=== PATIENT | male | born 1950 | race Caucasian/White ===

== ENCOUNTER → 2018-03-25 07:57 | Outpatient (CLI) | payer OTHER, SELFPAY ==
[2018-03-25 09:03] LABS: Hemoglobin A1C% w Est Avg Glu 5.4 % (4.0-6.0)
[2018-03-25 09:26] LABS: BUN Creatinine Ratio 27.1 (6-22); Blood Urea Nitrogen 19 mg/dL (9-20); Calcium 9.2 mg/dL (8.4-10.2); Carbon Dioxide 28 mmol/L (22-32); Chloride 102 mmol/L (98-107); Cholesterol 184 mg/dL (140-199); Estimated Glomerular Filt Rate > 60.0 mL/min (>60); Glucose 91 mg/dL (80-110); HDL Cholesterol 51 mg/dL (40-60); HEMOLYSIS < 15 (0-50); LDL Cholesterol Calculated 119 mg/dL (<100); Potassium 4.8 mmol/L (3.4-5.1); Sodium 141 mmol/L (137-145); Triglycerides 71 mg/dL (35-150)
[2018-03-25 09:56] LABS: TSH w/ Reflex to FT4 2.38 uIU/mL (0.47-4.68)
[2018-03-25 09:57] LABS: Prostate Specific Antigen 0.945 ng/mL (0.10-4.00)
[2018-03-25 10:47] LABS: Microalbumi Creatinin Ratio Ur 2.7 ug/mg CR (<30); Microalbumin Urine Random 0.8 mg/dL (0-1.6)
== END ==
PROVIDERS: Family Provider Family Medicine; PCP Family Medicine; Visit Provider Family Medicine
DX: E11.9 Type 2 diabetes mellitus without complications (principal); I10 Essential (primary) hypertension; E03.9 Hypothyroidism, unspecified
CPT/HCPCS: 36415; 80048; 80061; 82043; 82570; 83036; 84153; 84443

== ENCOUNTER 2018-07-30 07:42 | Day surgery (SDC) | payer OTHER, SELFPAY ==
--- NOTE | 2018-07-30 | PATH_ITS ---
[facility] Accession Number: [id number] . 01 Material submitted: . ASCENDING COLON BIOPSIES . 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 [facility]/08/01/2018 . 02 Electronically signed: . Li Cruz MD, Pathologist NPI- [id number] . 01 Gross description: . Received one formalin-filled container labeled with the patient's name and labeled ascending colon are four 0.1 to 0.3 cm portions of tissue. Entirely submitted in one cassette. ([facility] [place]:[id number]) /[facility] . 02 Pathologist provided ICD-10: D12.2 . 02 CPT . 060051 Performed at: 01 [facility] [address] [id number] MD Braden Simpson MD Phone: [phone] Performed at: 02 [facility] [address] [place], [place] [id number] MD Li Cruz MD Phone: [phone]
[2018-07-30 08:21] VITALS: BP 125/77; PULSE 55; RESP 15; TEMP 36.4; O2SAT 97; BMI 26.1
[2018-07-30] MEDS: SODIUM CHLORIDE 0.9% 1,000 ML 200 ML IV (08:55)
--- NOTE | 2018-07-30 09:06 | SUR.OPER ---
pt had episode of lightheadedness, paleness, and diaphoresis following insert of IV. BP had drop to 99/65 from 127/77 and heart rate decreased from 55 to 43 . pt layed flat and infused NS at wide open for 500 cc bolus with pt returning to normal pre op assessment status within 10 minutes. remained alert and oriented throughout entire episode
[2018-07-30] MEDS: fentaNYL 250 MCG/5 ML INJ IV (09:10)
[2018-07-30] MEDS: MIDAZOLAM 5 MG/5 ML VIAL IV (09:11)
--- NOTE | 2018-07-30 09:28 | PM.HP.1 ---
History of Present Illness Date Patient Seen: 07/30/18 Time Patient Seen: 09:28 Chief complaint: colonoscopy [id number] Narrative: Patient is a gentleman whose last colonoscopy was 5 years ago. He has a personal history of polyps. He is here for colonoscopy. No family history of colon cancer. Patient History Medical History Diabetes mellitus type 2 in nonobese (Chronic) Actinic keratosis (Chronic ~2007) Atrial fibrillation (Chronic ~1977) Hearing loss (Chronic ~1957) Hypothyroidism (Chronic ~2009) Rheumatic fever (Chronic ~1959) Sleep apnea (Chronic ~2009) Tinnitus (Chronic) Anesthesia (Resolved) Chicken pox (Resolved ~1957) Fractures (Resolved ~1960) Measles (Resolved ~1959) Mumps (Resolved ~1959) Surgical History Inguinal hernia (Resolved) Status post colonoscopy Status post myringotomy with insertion of tube Status post tonsillectomy and adenoidectomy Family & Social History Family History: Reviewed 07/30/18 by Cl Andrew MD Social History: household members spouse Tobacco & Substance use: Smoking Status Never smoker Meds Home Medications Medication Instructions Recorded Confirmed Type ASPIRIN (Aspirin EC) 81 mg PO QDAY #0 01/30/12 03/28/18 History [FLAX SEED OIL] 14 mg PO QDAY #0 01/30/12 03/28/18 History docusate sodium 200 mg PO QDAY #0 01/30/12 07/30/18 History Glucose: Home Monitoring Kit kit QDAY #1 11/21/16 03/28/18 Rx Lancets strip TID #100 07/09/17 03/28/18 Rx Test Strips - Freestyle str TID #270 07/13/17 03/28/18 Rx Glucose: Test Strips str TID #270 08/31/17 03/28/18 Rx Lancets box #100 12/13/17 03/28/18 Rx levothyroxine 50 mcg tablet 50 mcg PO QDAY #90 tab 03/28/18 07/30/18 Rx lisinopril 20 mg tablet 20 mg PO QDAY #90 tab 03/28/18 07/30/18 Rx metformin 1,000 mg tablet 1,000 mg PO BIDCC #180 tab 03/28/18 07/30/18 Rx atenolol 25 mg tablet 25 mg PO Q24H #90 tab 04/08/18 07/30/18 Rx Allergies Allergy/AdvReac Type Severity Reaction Status Date / Time diltiazem [DILTIAZEM] Allergy Mild Verified 07/30/18 08:32 Sulfa (Sulfonamide Allergy Mild Verified 07/30/18 08:32 Antibiotics) [SULFA (SULFONAMIDE ANTIBIOTICS)] duyen tree Allergy Mild Uncoded 03/28/18 08:36 cantalope Allergy Mild Uncoded 03/28/18 08:36 ragweed Allergy Mild Uncoded 03/28/18 08:36 Review of Systems Review of Systems No cough cold or asthma. He has a slow heart rate. Has a history of atrial fibrillation. Is not anticoagulated. No seizures blackouts Exam Vital Signs (past 8 hours): - 07/30/18 08:21 Temperature 97.6 F Pulse Rate 55 L Respiratory Rate 15 Blood Pressure 125/77 Pulse Oximetry 97 Oxygen Delivery Method Room Air Narrative Exam Narrative: Lungs are clear to auscultation no rales or rhonchi . heart very slow but regular rate and rhythm without murmur gallop. Abdomen is soft nontender without mass. Assessment & Plan Plan: Assessment/Plan Narrative: Will proceed to colonoscopy. I have discussed the procedure and the rationale with the patient including risks of bleeding, perforation which would necessitate a major operation, failure to find remove all lesions and the potential to tattoo. They appeared to understand and wished to proceed.
--- NOTE | 2018-07-30 09:32 | PM.PREOP ---
Pre-operative Note Interval Note Pre-op Check: Yes History & Physical exam performed today by Physician Changes: No ASA Class (for procedural sedation): III
[2018-07-30 10:15] VITALS: BP 86/55; PULSE 45; RESP 16; TEMP 36; O2SAT 96
[2018-07-30 10:20] VITALS: BP 86/53; PULSE 46; RESP 14; TEMP 35.8; O2SAT 95
--- NOTE | 2018-07-30 10:22 | PM.OP.ENDO ---
Operative Date/Time/Diagnoses Date of procedure: 07/30/18 Time of procedure: 10:22 Pre-op diagnosis: Screening examination. History of polyps. Last exam 5 years ago. Post-op diagnosis: same (Polyps in the ascending colon.) Procedure & Clinicians Study performed: Colonoscopy with cold biopsy Same procedure as scheduled: Yes Indications: Screening Surgeon: Cl Andrew Procedure Notes SCOAP/Timeout: Performed Procedure in detail: The patient was placed in the left lateral decubitus position and underwent IV sedation directed by the surgeon consisting of fentanyl and Versed. Digital exam was unremarkable. No prostate masses noted. The scope was inserted and advanced through the rectum into the sigmoid, descending, transverse, and ascending colon. A stiffener was applied along with pressure in order to reach the cecum. The cecum was reached identified by the ileocecal valve and the appendiceal opening. The scope was gradually brought out. Polyps were found in the ascending colon. These were small and near 1 another and placed in the same container. The scope ultimately was retroflexed in the rectum. The appearance was remarkable for small internal hemorrhoids without ulceration. The scope was removed and the patient tolerated the procedure well Scope withdrawal time: 12.5 min Sedation minutes: 29 Findings: diverticulosis (Principally rights sided occasional diverticula), internal hemorrhoids (Small) and polyp (Ascending colon) Specimen(s): other (Polyps) Complications: none Recommendations: Colonscopy in 5 years Follow up: as needed Disposition: PACU
[2018-07-30 10:25] VITALS: BP 96/58; PULSE 54; RESP 20; TEMP 36.2; O2SAT 95
[2018-07-30 10:30] VITALS: BP 94/63; PULSE 50; RESP 16; TEMP 36.1; O2SAT 94
[2018-07-30 10:45] VITALS: BP 101/60; PULSE 48; RESP 16; TEMP 36.6; O2SAT 99
--- NOTE | 2018-07-30 11:37 | SUR.PHASEII ---
brought in, discussed heart rate and atenolol. both voiced an understanding.pt left when ready and left in stable condition.
== END 2018-07-30 11:00 ==
PROVIDERS: PCP Family Medicine; Visit Provider Specialist
PROC: 0DJD8ZZ Inspection of Lower Intestinal Tract, Via Natural or Artificial Opening Endoscopic (ICD-10-PCS; CPT 45378; principal; 2018-07-30 08:45)
DX: Z86.010 Personal history of colon polyps (principal); D12.2 Benign neoplasm of ascending colon; K57.30 Diverticulosis of large intestine without perforation or abscess without bleeding; K64.8 Other hemorrhoids; E11.9 Type 2 diabetes mellitus without complications; I48.91 Unspecified atrial fibrillation; E03.9 Hypothyroidism, unspecified; M06.9 Rheumatoid arthritis, unspecified; G47.33 Obstructive sleep apnea (adult) (pediatric)
CPT/HCPCS: 45380; 99152; 99153; J2250; J3010

== ENCOUNTER → 2019-03-27 08:50 | Outpatient (CLI) | payer OTHER, SELFPAY ==
[2019-03-27 09:19] LABS: Add Manual Diff / Slide Review NO; Basophils Absolute Auto 0 /uL (0-100); Basophils Percent Auto 0.4 % (0-2); Eosinophils Absolute Auto 200 /uL (0-450); Eosinophils Percent Auto 2.9 % (2-4); Hematocrit 40.5 % (41-53); Hemoglobin 13.6 g/dL (13.5-17.5); Lymphocytes Absolute Auto 1900 /uL (1100-4500); Lymphocytes Percent Auto 31.8 % (25-40); Mean Corpuscular HGB Conc 33.7 % (30-36); Mean Corpuscular Hemoglobin 31.2 PG (26-34); Mean Corpuscular Volume 92.7 fL (80-100); Monocytes Absolute Auto 500 /uL (0-900); Neutrophils Absolute Auto 3500 /uL (1500-7000); Neutrophils Percent Auto 56.9 % (50-75); Platelet Count 245 X10^3/uL (150-400); Red Blood Cell Count 4.37 X10^6/uL (4.5-5.9); Red Cell Distribution Width 13.6 % (11.6-14.8); White Blood Cell Count 6.1 X10^3/uL (4.5-11.0)
[2019-03-27 09:26] LABS: Hemoglobin A1C% w Est Avg Glu 5.4 % (4.0-6.0)
[2019-03-27 09:52] LABS: Alanine Aminotransferase 10 IU/L (21-72); Albumin 4.2 g/dL (3.5-5.0); Albumin Globulin Ratio 1.5 (1.0-2.8); Alkaline Phosphatase 56 U/L (38-126); Aspartate Aminotransferase 17 IU/L (17-59); BUN Creatinine Ratio 22.9 (6-22); Bilirubin Total 0.5 mg/dL (0.2-1.3); Blood Urea Nitrogen 16 mg/dL (9-20); Calcium 9.3 mg/dL (8.4-10.2); Carbon Dioxide 31 mmol/L (22-32); Chloride 103 mmol/L (98-107); Cholesterol 194 mg/dL (140-199); Estimated Glomerular Filt Rate > 60.0 mL/min (>60); Globulin 2.8 g/dL (1.7-4.1); Glucose 97 mg/dL (80-110); HDL Cholesterol 43 mg/dL (40-60); HEMOLYSIS < 15 (0-50); LDL Cholesterol Calculated 128 mg/dL (<100); Potassium 4.9 mmol/L (3.4-5.1); Sodium 140 mmol/L (137-145); Triglycerides 114 mg/dL (35-150)
[2019-03-27 10:21] LABS: Prostate Specific Antigen Scrn 1.19 ng/mL (0.1-4.0)
[2019-03-27 10:23] LABS: Thyroid Stimulating Hormone 1.74 uIU/mL (0.47-4.68)
== END ==
PROVIDERS: PCP Family Medicine; Visit Provider Family Medicine
DX: E03.9 Hypothyroidism, unspecified (principal); E11.9 Type 2 diabetes mellitus without complications; E78.5 Hyperlipidemia, unspecified; Z12.5 Encounter for screening for malignant neoplasm of prostate; I10 Essential (primary) hypertension
CPT/HCPCS: 36415; 80053; 80061; 83036; 84443; 85025; G0103

== ENCOUNTER → 2020-05-03 08:43 | Outpatient (CLI) | payer MEDICARE, SELFPAY ==
[2020-05-03 09:21] LABS: Add Manual Diff / Slide Review NO; Basophils Absolute Auto 0 /uL (0-100); Basophils Percent Auto 0.3 % (0-2); Eosinophils Absolute Auto 200 /uL (0-450); Eosinophils Percent Auto 4.1 % (2-4); Hemoglobin 13.5 g/dL (13.5-17.5); Lymphocytes Absolute Auto 1800 /uL (1100-4500); Lymphocytes Percent Auto 29.9 % (25-40); Mean Corpuscular HGB Conc 32.8 % (30-36); Mean Corpuscular Hemoglobin 30.9 PG (26-34); Mean Corpuscular Volume 94.3 fL (80-100); Monocytes Absolute Auto 500 /uL (0-900); Monocytes Percent Auto 8.1 % (3-14); Neutrophils Absolute Auto 3400 /uL (1500-7000); Neutrophils Percent Auto 57.6 % (50-75); Platelet Count 247 X10^3/uL (150-400); Red Blood Cell Count 4.35 X10^6/uL (4.5-5.9); Red Cell Distribution Width 13.3 % (11.6-14.8); White Blood Cell Count 5.9 X10^3/uL (4.5-11.0)
[2020-05-03 09:41] LABS: Hemoglobin A1C% w Est Avg Glu 5.8 % (4.0-6.0)
[2020-05-03 09:46] LABS: Alanine Aminotransferase 15 IU/L (<50); Albumin 4.3 g/dL (3.5-5.0); Albumin Globulin Ratio 1.5 (1.0-2.8); Alkaline Phosphatase 64 U/L (38-126); Aspartate Aminotransferase 24 IU/L (17-59); BUN Creatinine Ratio 19.5 (6-22); Bilirubin Total 0.5 mg/dL (0.2-1.3); Blood Urea Nitrogen 16 mg/dL (9-20); Carbon Dioxide 31 mmol/L (22-32); Chloride 102 mmol/L (98-107); Cholesterol 205 mg/dL (140-199); Estimated Glomerular Filt Rate > 60.0 mL/min (>60); Globulin 2.9 g/dL (1.7-4.1); Glucose 97 mg/dL (80-110); HDL Cholesterol 43 mg/dL (40-60); HEMOLYSIS < 15 (0-50); LDL Cholesterol Calculated 129 mg/dL (<100); Potassium 4.8 mmol/L (3.4-5.1); Sodium 137 mmol/L (137-145); Total Protein 7.2 g/dL (6.3-8.2); Triglycerides 167 mg/dL (35-150)
[2020-05-03 10:14] LABS: TSH w/ Reflex to FT4 2.48 uIU/mL (0.47-4.68)
== END ==
PROVIDERS: PCP Family Medicine; Referring Provider Family Medicine; Visit Provider Family Medicine
DX: E03.9 Hypothyroidism, unspecified (principal); E11.9 Type 2 diabetes mellitus without complications; E78.5 Hyperlipidemia, unspecified; I10 Essential (primary) hypertension
CPT/HCPCS: 36415; 80053; 80061; 83036; 84443; 85025

== ENCOUNTER → 2021-07-11 08:09 | Outpatient (CLI) | payer MEDICARE, SELFPAY ==
[2021-07-11 09:14] LABS: Add Manual Diff / Slide Review NO; Basophils Absolute Auto 0 /uL (0-100); Basophils Percent Auto 0.3 % (0-2); Eosinophils Absolute Auto 100 /uL (0-450); Eosinophils Percent Auto 2.6 % (2-4); Hematocrit 39.1 % (41-53); Hemoglobin 13.1 g/dL (13.5-17.5); Lymphocytes Absolute Auto 1800 /uL (1100-4500); Lymphocytes Percent Auto 32.7 % (25-40); Mean Corpuscular HGB Conc 33.5 % (30-36); Mean Corpuscular Hemoglobin 31.3 PG (26-34); Mean Corpuscular Volume 93.4 fL (80-100); Monocytes Absolute Auto 600 /uL (0-900); Monocytes Percent Auto 10.6 % (3-14); Neutrophils Absolute Auto 2900 /uL (1500-7000); Neutrophils Percent Auto 53.8 % (50-75); Platelet Count 264 X10^3/uL (150-400); Red Blood Cell Count 4.18 X10^6/uL (4.5-5.9); Red Cell Distribution Width 13.4 % (11.6-14.8); White Blood Cell Count 5.4 X10^3/uL (4.5-11.0)
[2021-07-11 09:43] LABS: Hemoglobin A1C% w Est Avg Glu 5.4 % (4.0-6.0)
[2021-07-11 09:44] LABS: Alanine Aminotransferase 16 IU/L (<50); Albumin 4.3 g/dL (3.5-5.0); Albumin Globulin Ratio 1.5 (1.0-2.8); Alkaline Phosphatase 58 U/L (38-126); Aspartate Aminotransferase 33 IU/L (17-59); Bilirubin Total 0.5 mg/dL (0.2-1.3); Blood Urea Nitrogen 20 mg/dL (9-20); Calcium 9.2 mg/dL (8.4-10.2); Carbon Dioxide 29 mmol/L (22-32); Chloride 102 mmol/L (98-107); Cholesterol 225 mg/dL (140-199); Estimated Glomerular Filt Rate > 60.0 mL/min (>60); Globulin 2.8 g/dL (1.7-4.1); Glucose 95 mg/dL (80-110); HDL Cholesterol 42 mg/dL (40-60); HEMOLYSIS < 15 (0-50); LDL Cholesterol Calculated 163 mg/dL (<100); Potassium 4.8 mmol/L (3.4-5.1); Sodium 139 mmol/L (137-145); Total Protein 7.1 g/dL (6.3-8.2); Triglycerides 101 mg/dL (35-150)
[2021-07-11 09:56] LABS: Creatinine Urine Random 95.5 mg/dL
[2021-07-11 10:05] LABS: Microalbumin Urine Random < 0.6 mg/dL (0-1.6)
[2021-07-11 10:09] LABS: TSH w/ Reflex to FT4 2.02 uIU/mL (0.47-4.68)
== END ==
PROVIDERS: PCP Family Medicine; Referring Provider Family Medicine; Visit Provider Family Medicine
DX: E03.9 Hypothyroidism, unspecified (principal); E11.9 Type 2 diabetes mellitus without complications; E78.5 Hyperlipidemia, unspecified; I10 Essential (primary) hypertension
CPT/HCPCS: 36415; 80053; 80061; 82043; 82570; 83036; 84443; 85025

== ENCOUNTER → 2022-07-12 08:15 | Outpatient (CLI) | payer MEDICARE, SELFPAY ==
[2022-07-12 08:48] LABS: Add Manual Diff / Slide Review NO; Basophils Absolute Auto 0 /uL (0-100); Basophils Percent Auto 0.4 % (0-2); Eosinophils Absolute Auto 200 /uL (0-450); Eosinophils Percent Auto 3.2 % (2-4); Hematocrit 38.7 % (41-53); Hemoglobin 13.3 g/dL (13.5-17.5); Lymphocytes Absolute Auto 1600 /uL (1100-4500); Lymphocytes Percent Auto 30.7 % (25-40); Mean Corpuscular HGB Conc 34.2 % (30-36); Mean Corpuscular Hemoglobin 31.6 PG (26-34); Mean Corpuscular Volume 92.2 fL (80-100); Monocytes Absolute Auto 500 /uL (0-900); Monocytes Percent Auto 10.2 % (3-14); Neutrophils Absolute Auto 2900 /uL (1500-7000); Neutrophils Percent Auto 55.5 % (50-75); Platelet Count 252 X10^3/uL (150-400); Red Cell Distribution Width 13.7 % (11.6-14.8); White Blood Cell Count 5.3 X10^3/uL (4.5-11.0)
[2022-07-12 09:03] LABS: Hemoglobin A1C% w Est Avg Glu 5.8 % (4.0-6.0)
[2022-07-12 09:30] LABS: Alanine Aminotransferase 16 IU/L (<50); Albumin 4.3 g/dL (3.5-5.0); Albumin Globulin Ratio 1.5 (1.0-2.8); Alkaline Phosphatase 67 U/L (38-126); Aspartate Aminotransferase 20 IU/L (17-59); Bilirubin Total 0.6 mg/dL (0.2-1.3); Blood Urea Nitrogen 17 mg/dL (9-20); Calcium 8.9 mg/dL (8.4-10.2); Carbon Dioxide 31 mmol/L (22-32); Chloride 101 mmol/L (98-107); Cholesterol 233 mg/dL (140-199); Estimated Glomerular Filt Rate > 60 mL/min (>60); Globulin 2.8 g/dL (1.7-4.1); Glucose 94 mg/dL (80-110); HDL Cholesterol 46 mg/dL (40-60); HEMOLYSIS < 15 (0-50); LDL Cholesterol Calculated 162 mg/dL (<100); Potassium 4.9 mmol/L (3.4-5.1); Sodium 137 mmol/L (137-145); Total Protein 7.1 g/dL (6.3-8.2); Triglycerides 125 mg/dL (35-150)
[2022-07-12 09:51] LABS: Thyroid Stimulating Hormone 2.58 uIU/mL (0.47-4.68)
[2022-07-12 09:55] LABS: Creatinine Urine Random 131.4 mg/dL
[2022-07-12 10:04] LABS: Microalbumin Urine Random < 0.6 mg/dL (0-1.6)
== END ==
PROVIDERS: PCP Family Medicine; Referring Provider Family Medicine; Visit Provider Family Medicine
DX: E03.9 Hypothyroidism, unspecified (principal); E16.2 Hypoglycemia, unspecified; E78.5 Hyperlipidemia, unspecified; I10 Essential (primary) hypertension; E11.9 Type 2 diabetes mellitus without complications
CPT/HCPCS: 36415; 80053; 80061; 82043; 82570; 83036; 84443; 85025

== ENCOUNTER 2023-01-30 07:37 | Day surgery (SDC) | payer MEDICARE, SELFPAY ==
[2023-01-30 07:58] VITALS: BP 140/79; PULSE 59; RESP 18; TEMP 36; O2SAT 99; BMI 26.5
[2023-01-30] MEDS: LACTATED RINGERS 1,000 ML 200 ML IV (08:21)
--- NOTE | 2023-01-30 08:50 | PM.HP.1 ---
History of Present Illness History of Present Illness Date Patient Seen: 01/30/23 Time Patient Seen: 08:50 Chief complaint: [facility] Narrative: 72-year-old man personal history of colonic polyps here for screening colonoscopy. Last colonoscopy approximately 5 years ago. No abdominal pain nausea vomiting blood per rectum. No personal or family history of intestinal malignancy. [facility] Medical History Actinic keratosis (~2007) Anesthesia Atrial fibrillation (~1977) Chicken pox (~1957) Fractures (~1960) Hearing loss (~1957) Hypoglycemia Hypothyroidism (~2009) Measles (~1959) Mumps (~1959) Obstructive sleep apnea (adult) (pediatric) Tinnitus Type 2 diabetes mellitus without complication, without long-term current use of insulin (03/27/17) Surgical History Inguinal hernia Status post colonoscopy Status post myringotomy with insertion of tube Status post tonsillectomy and adenoidectomy Family History Brother Diabetes mellitus Heart disease Father Heart disease Mother Heart disease Sister Age: 85 Diabetes mellitus Heart disease Hypertension High cholesterol Osteoporosis Sister Age: 78 Cancer Osteoporosis Sister Age: 78 Diabetes mellitus Heart disease Osteoporosis Social History marital status: household members: spouse Smoking Status: Never smoker alcohol intake: never Meds Home Medications and Allergies Home Medications Medication Instructions Recorded Confirmed Type ASPIRIN (Aspirin EC) 81 mg PO QDAY ##0 01/30/12 01/30/23 History docusate sodium 100 mg capsule 200 mg PO QDAY ##0 01/30/12 01/30/23 History Glucose: Home Monitoring Kit kit QDAY ##1 11/21/16 01/02/23 Rx Lancets #200 ea 10/01/18 01/02/23 Rx Resmed Airsense 10 CPAP #1 ea 02/03/19 01/02/23 History Glucose: Test Strips #1 ea 09/12/19 01/02/23 Rx blood-glucose meter (Blood Glucose #1 ea 09/12/19 01/02/23 Rx Monitoring kit) lancets #100 ea 09/12/19 01/02/23 Rx atenolol 25 mg tablet See Rx Instructions .Route 07/10/22 01/30/23 Rx .COMPLEX #90 tabs levothyroxine 50 mcg tablet See Rx Instructions .Route 07/10/22 01/30/23 Rx .COMPLEX #90 tabs lisinopril 20 mg tablet See Rx Instructions .Route 07/10/22 01/30/23 Rx .COMPLEX #90 tabs metformin 1,000 mg tablet 1,000 mg PO BID #180 tabs 07/10/22 01/30/23 Rx sodium,potassium,mag sulfates 17.5 See Rx Instructions PO .COMPLEX 12/27/22 01/30/23 Rx gram-3.13 gram-1.6 gram oral soln #354 mL (Suprep Bowel Prep Kit) cholecalciferol (vitamin D3) 100 1,000 unit PO DAILY 01/30/23 01/30/23 History mcg (4,000 unit) capsule Allergies Allergy/AdvReac Type Severity Reaction Status Date / Time cantaloupe Allergy Mild Verified 01/30/23 07:47 diltiazem [DILTIAZEM] Allergy Mild Verified 01/30/23 07:47 Sulfa (Sulfonamide Allergy Mild Verified 01/30/23 07:47 Antibiotics) [SULFA (SULFONAMIDE ANTIBIOTICS)] Exam Vital Signs (past 8 hours): - 01/30/23 07:58 Temperature 96.8 F L Pulse Rate 59 L Respiratory Rate 18 Blood Pressure 140/79 Pulse Oximetry 99 Oxygen Delivery Method Room Air Oxygen Delivery Method Room Air Narrative Exam Narrative: General adult man alert oriented no acute distress Abdomen soft nontender nondistended Assessment & Plan Assessment and plan (1) Personal history of colonic polyps: Status: Acute Assessment & Plan narrative: The patient requires colorectal screening and colonoscopy is recommended. Technical details were discussed. Risks, benefits, alternatives explained. Risks including but not limited to myocardial infarction, aspiration, bleeding, pain, missed lesion, incomplete examination, need for further radiographic studies, colonic perforation, and need for major abdominal surgery were discussed. All questions were answered to their satisfaction, and they are in agreement with this plan.
--- NOTE | 2023-01-30 08:55 | PM.OP.COLON ---
Operative Date/Time/Diagnoses Date of procedure: 01/30/23 Time of procedure: 08:55 Pre-op diagnosis: Personal history of colonic polyps Post-op diagnosis: same Procedure & Clinicians Study performed: Colonoscopy Same procedure as scheduled: Yes Indications: Personal history of colonic polyps Surgeon: Jann Blanc Procedure Notes Procedure in detail: The history and physical was performed/updated and the patient is ASA class is 2. The procedure was discussed in detail with the patient. Potential risks complications including infection, bleeding, missed diagnosis, perforation, need for surgery, and were explained. Their questions were answered and informed consent was obtained. Patient was brought to the procedure room and placed standard monitoring equipment. The patient's vital signs were monitored continuously throughout the entire procedure. Prior to starting time-out was performed. The patient was placed in the left lateral recumbent position. Procedural sedation was administered by anesthesia. Examination began with a thorough inspection of the perianal area there was no evidence of fissures, fistulae, external hemorrhoids or cutaneous malignancy. The colonoscopy scope was then placed into the anal canal and was advanced to the cecum, which was identified by the ileocecal valve, the appendiceal orifice and the confluence of the taenia. The scope was then slowly withdrawn examining colon thoroughly in all directions, irrigating it of any residual stool. Normal-appearing colon. No masses or polyps. Grade 2 internal hemorrhoids on retroflexion The patient tolerated the procedure well. They will be discharged once criteria are met. The prep was of good/excellent quality. The withdrawl time was 7 minutes. Specimen(s): none sent Impression: Normal colonoscopy Post-procedure Recommendations: High fiber diet Plan for aftercare: No need for further colonoscopy Disposition: same day surgery
[2023-01-30 09:21] VITALS: BP 102/59; PULSE 58; RESP 16; TEMP 36.2; O2SAT 95
[2023-01-30 09:26] VITALS: BP 105/60; PULSE 51; RESP 16; O2SAT 98
[2023-01-30 09:31] VITALS: BP 108/74; PULSE 54; RESP 16; TEMP 36.2; O2SAT 97
[2023-01-30 09:40] VITALS: BP 123/76; PULSE 80; RESP 16; TEMP 36.2; O2SAT 98
== END 2023-01-30 09:55 | disposition home or self-care (01) ==
PROVIDERS: PCP Family Medicine; Referring Provider Surgery; Visit Provider Surgery
PROC: 0DJD8ZZ Inspection of Lower Intestinal Tract, Via Natural or Artificial Opening Endoscopic (ICD-10-PCS; CPT 45378; principal; 2023-01-30 08:45)
DX: Z12.11 Encounter for screening for malignant neoplasm of colon (principal); Z86.010 Personal history of colon polyps; K64.1 Second degree hemorrhoids
CPT/HCPCS: G0105; J2704

== ENCOUNTER → 2023-07-12 09:42 | Outpatient (CLI) | payer MEDICARE, SELFPAY ==
[2023-07-12 10:54] LABS: Add Manual Diff / Slide Review NO; Basophils Absolute Auto 0 /uL (0-100); Basophils Percent Auto 0.3 % (0-2); Eosinophils Absolute Auto 200 /uL (0-450); Eosinophils Percent Auto 2.9 % (2-4); Hematocrit 38.3 % (41-53); Hemoglobin 13.1 g/dL (13.5-17.5); Lymphocytes Absolute Auto 1800 /uL (1100-4500); Lymphocytes Percent Auto 28.2 % (25-40); Mean Corpuscular HGB Conc 34.2 % (30-36); Mean Corpuscular Hemoglobin 31.5 PG (26-34); Mean Corpuscular Volume 92.2 fL (80-100); Monocytes Absolute Auto 600 /uL (0-900); Monocytes Percent Auto 9.6 % (3-14); Neutrophils Absolute Auto 3800 /uL (1500-7000); Platelet Count 251 X10^3/uL (150-400); Red Blood Cell Count 4.15 X10^6/uL (4.5-5.9); Red Cell Distribution Width 13.7 % (11.6-14.8); White Blood Cell Count 6.4 X10^3/uL (4.5-11.0)
[2023-07-12 11:37] LABS: Alanine Aminotransferase 18 IU/L (<50); Albumin 4.1 g/dL (3.5-5.0); Albumin Globulin Ratio 1.5 (1.0-2.8); Alkaline Phosphatase 61 U/L (38-126); Aspartate Aminotransferase 22 IU/L (17-59); BUN Creatinine Ratio 23.1 (6-22); Bilirubin Total 0.5 mg/dL (0.2-1.3); Blood Urea Nitrogen 18 mg/dL (9-20); Calcium 9.5 mg/dL (8.4-10.2); Carbon Dioxide 27 mmol/L (22-32); Chloride 101 mmol/L (98-107); Cholesterol 249 mg/dL (140-199); Estimated Glomerular Filt Rate > 60 mL/min (>60); Globulin 2.8 g/dL (1.7-4.1); Glucose 97 mg/dL (80-110); HDL Cholesterol 43 mg/dL (40-60); HEMOLYSIS < 15 (0-50); LDL Cholesterol Calculated 180 mg/dL (<100); Potassium 5.1 mmol/L (3.4-5.1); Sodium 136 mmol/L (137-145); Total Protein 6.9 g/dL (6.3-8.2); Triglycerides 129 mg/dL (35-150)
[2023-07-12 12:02] LABS: Prostate Specific Antigen Scrn 1.37 ng/mL (0.1-4.0)
[2023-07-12 12:11] LABS: Creatinine Urine Random 106.7 mg/dL
[2023-07-12 12:26] LABS: Microalbumin Urine Random < 0.6 mg/dL (0-1.6)
== END ==
PROVIDERS: PCP Family Medicine; Referring Provider Physician Assistant; Visit Provider Physician Assistant
DX: E11.9 Type 2 diabetes mellitus without complications (principal); Z12.5 Encounter for screening for malignant neoplasm of prostate; E78.5 Hyperlipidemia, unspecified; E03.9 Hypothyroidism, unspecified; I10 Essential (primary) hypertension
CPT/HCPCS: 36415; 80053; 80061; 82043; 82570; 84443; 85025; G0103

== ENCOUNTER → 2023-09-11 09:32 | Outpatient (CLI) | payer MEDICARE, SELFPAY ==
[2023-09-11 10:15] LABS: Hematocrit 40.1 % (41-53); Hemoglobin 13.6 g/dL (13.5-17.5); Mean Corpuscular HGB Conc 33.8 % (30-36); Mean Corpuscular Hemoglobin 31.3 PG (26-34); Mean Corpuscular Volume 92.7 fL (80-100); Platelet Count 279 X10^3/uL (150-400); Red Blood Cell Count 4.33 X10^6/uL (4.5-5.9); Red Cell Distribution Width 13.5 % (11.6-14.8); White Blood Cell Count 6.4 X10^3/uL (4.5-11.0)
[2023-09-11 10:34] LABS: Neutrophils Absolute Manual 4544 /uL (3000-5900); Total Cells Counted 100
[2023-09-11 10:35] LABS: RBC Morphology Normal Morphology
[2023-09-11 10:47] LABS: HEMOLYSIS < 15 (0-50); Iron 134 ug/dL (49-181)
[2023-09-11 10:59] LABS: Percent Iron Saturation 43 % (20-50); Total Iron Binding Capacity 311 ug/dL (261-462); Transferrin 261 mg/dL (206-381)
[2023-09-11 11:21] LABS: Ferritin 34 ng/mL (18-464)
[2023-09-11 11:52] LABS: Folate > 20.0 ng/mL (2.76-20.0); Vitamin B12 752 pg/mL (239-931)
[2023-09-12 11:38] LABS: Hemoglobin A1C% w Est Avg Glu 5.7 % (4.0-6.0)
== END ==
PROVIDERS: PCP Family Medicine; Referring Provider Family Medicine; Visit Provider Family Medicine
DX: D64.9 Anemia, unspecified (principal)
CPT/HCPCS: 36415; 82607; 82728; 82746; 83036; 83540; 83550; 85025

== ENCOUNTER 2024-03-20 14:55 | Emergency (ER) | payer MEDICARE, SELFPAY ==
[2024-03-20 15:13] VITALS: BP 141/76; PULSE 60; RESP 16; TEMP 36.5; O2SAT 96; BMI 30.8
--- NOTE | 2024-03-20 15:35 | ED_ITS ---
HPI - Dental/Oral <ADELA Cerrato - Last Filed: 03/20/24 17:17> General Chief complaint: Dental/Oral Stated complaint: thinks cardiac issue, spasming neck Time Seen by Provider: 03/20/24 15:33 Source: patient Mode of arrival: Ambulatory History of Present Illness HPI Narrative: 73-year-old male, never smoker history diabetes and hypertension, presents to the emergency department with right jaw pain that radiates to the back of his neck. Patient had a dental procedure done a couple of months ago, was told that the pain would last for a day or 2 but has been intermittent ever since. Patient and spouse are concerned that this could be cardiac related and would like to have that ruled out. Patient denies any nausea or diaphoresis with this pain. Patient does endorse feeling dizzy when the pain is present. Related Data Home Medications Medication Instructions Recorded Confirmed ASPIRIN (Aspirin EC) 81 mg PO QDAY ##0 01/30/12 09/10/23 docusate sodium 100 mg capsule 200 mg PO QDAY ##0 01/30/12 09/10/23 Resmed Airsense 10 CPAP #1 ea 02/03/19 09/10/23 cholecalciferol (vitamin D3) 100 1,000 unit PO DAILY 01/30/23 09/10/23 mcg (4,000 unit) capsule Previous Rx's Medication Instructions Recorded Glucose: Home Monitoring Kit kit QDAY ##1 11/21/16 Lancets #200 ea 10/01/18 Glucose: Test Strips #1 ea 09/12/19 blood-glucose meter (Blood Glucose #1 ea 09/12/19 Monitoring kit) lancets #100 ea 09/12/19 atenolol 25 mg tablet 25 mg PO DAILY #90 tabs 10/11/23 levothyroxine 50 mcg tablet 50 mcg PO DAILY #90 tabs 10/11/23 metformin 1,000 mg tablet 1,000 mg PO BID #180 tabs 10/11/23 lisinopril 20 mg tablet 20 mg PO DAILY #90 tabs 10/12/23 Allergies Allergy/AdvReac Type Severity Reaction Status Date / Time cantaloupe Allergy Mild Verified 07/11/23 10:46 diltiazem [DILTIAZEM] Allergy Mild Verified 07/11/23 10:46 Sulfa (Sulfonamide Allergy Mild Verified 07/11/23 10:46 Antibiotics) [SULFA (SULFONAMIDE ANTIBIOTICS)] Review of Systems <ADELA Cerrato - Last Filed: 03/20/24 17:17> Review of Systems Narrative: Narrative: See HPI. GENERAL: Denies chills, fatigue, fever, sweats. HEENT: Denies sinus pain, ear pain, sore throat, difficulty swallowing, dizziness. Endorses right lower jaw pain. RESPIRATORY: Denies dyspnea, cough, wheezing, sputum. CARDIOVASCULAR: Denies chest pain, palpitations, edema. GASTROINTESTINAL: Denies nausea, vomiting, abdominal pain, diarrhea, constipation. : Denies dysuria, frequency, incontinence, hematuria, urinary retention, flank pain. MSK: Denies weakness, joint pain, or bony pain. SKIN: Denies rash, skin lesions, or pruritis. NEUROLOGIC: Denies weakness, dizziness, headache, numbness, confusion. Patient History <ADELA Cerrato - Last Filed: 03/20/24 17:17> Medical History Obstructive sleep apnea (adult) (pediatric) Anesthesia Fractures (~1960) Actinic keratosis (~2007) Mumps (~1959) Measles (~1959) Chicken pox (~1957) Tinnitus Hearing loss (~1957) Hypothyroidism (~2009) Atrial fibrillation (~1977) Type 2 diabetes mellitus without complication, without long-term current use of insulin (03/27/17) Hypoglycemia Surgical History Inguinal hernia Status post colonoscopy Status post myringotomy with insertion of tube Status post tonsillectomy and adenoidectomy Family History Brother Diabetes mellitus Heart disease Father Heart disease Mother Heart disease Sister Age: 87 Diabetes mellitus Heart disease Hypertension High cholesterol Osteoporosis Sister Age: 80 Cancer Osteoporosis Sister Age: 80 Diabetes mellitus Heart disease Osteoporosis Social History marital status: household members: spouse Smoking Status: Never smoker alcohol intake: never Smoking Status: Never smoker Substance Use Type: does not use Exam <ADELA Cerrato - Last Filed: 03/20/24 17:17> Narrative Exam Narrative: Exam Narrative: GENERAL: This is a well-nourished, well-developed patient, in no acute distress. HEAD: Atraumatic. Normocephalic. EYES: Pupils equal round and reactive. Extraocular motions intact. No scleral icterus, injection or drainage. ENT: Nose without bleeding, purulent drainage. Throat without erythema, tonsillar hypertrophy or exudate. Uvula midline. Airway patent. TMs and canals clear. NECK: Trachea midline. No JVD or lymphadenopathy. Nontender. CARDIOVASCULAR: Regular rate and rhythm without murmurs, peripheral pulses intact, cap refill <2 sec. RESPIRATORY: Breath sounds equal and clear bilaterally. No wheezes, rales, or rhonchi. No cough. No increased respiratory effort. No accessory muscle use. GASTROINTESTINAL: Abdomen soft, non-tender, nondistended without guarding or rebound. No suprapubic pain. MSK: Moves all extremities. Normal range of motion, no clubbing or edema. Neurovascularly intact. NEURO: A&O x 3. SKIN: Warm, dry, no rashes or lesions noted. Initial Vital Signs Initial Vital Signs: Vital Signs Temperature 97.7 F 03/20/24 15:13 Pulse Rate 60 03/20/24 15:13 Respiratory Rate 16 03/20/24 15:13 Blood Pressure 141/76 H 03/20/24 15:13 Pulse Oximetry 96 03/20/24 15:13 Oxygen Delivery Method Room Air 03/20/24 15:13 Reviewed <Josse Leal DO - Last Filed: 03/20/24 17:23> Initial Vital Signs Initial Vital Signs: Vital Signs Temperature 97.7 F 03/20/24 15:13 Pulse Rate 60 03/20/24 15:13 Respiratory Rate 16 03/20/24 15:13 Blood Pressure 141/76 H 03/20/24 15:13 Pulse Oximetry 96 03/20/24 15:13 Oxygen Delivery Method Room Air 03/20/24 15:13 Course <ADELA Cerrato - Last Filed: 03/20/24 17:17> Orders Ordered: ED Orders 03/20/24 15:43 XR chest 2V Stat EKG-12 Lead Stat 03/20/24 15:49 CBC Auto Diff [Complete Blood Count AUTO DIFF] Stat CMP [Comprehensive Metabolic Panel] Stat Lipase Stat Troponin & CK Cardiac Panel Stat Vital Signs Vital signs: Vital Signs - 8 hr 03/20/24 15:13 03/20/24 17:20 Temperature 97.7 F 97.4 F L Pulse Rate 60 60 Respiratory Rate 16 16 Blood Pressure 141/76 H 129/65 Pulse Oximetry 96 97 Oxygen Delivery Method Room Air Room Air <Josse Leal DO - Last Filed: 03/20/24 17:23> Orders Ordered: ED Orders 03/20/24 15:43 XR chest 2V Stat EKG-12 Lead Stat 03/20/24 15:49 CBC Auto Diff [Complete Blood Count AUTO DIFF] Stat CMP [Comprehensive Metabolic Panel] Stat Lipase Stat Troponin & CK Cardiac Panel Stat Vital Signs Vital signs: Vital Signs - 8 hr 03/20/24 15:13 03/20/24 17:20 Temperature 97.7 F 97.4 F L Pulse Rate 60 60 Respiratory Rate 16 16 Blood Pressure 141/76 H 129/65 Pulse Oximetry 96 97 Oxygen Delivery Method Room Air Room Air MDM - Dental/Oral <ADELA Cerrato - Last Filed: 03/20/24 17:17> Differential Diagnosis Differential diagnosis: Likely toothache and other (Jaw pain, Cardiac related disease) Lab Data 03/20/24 15:49 03/20/24 15:49 Labs: Lab Results 03/20/24 Range/Units 15:49 WBC 6.3 (4.5-11.0) X10^3/uL RBC 4.26 L (4.5-5.9) X10^6/uL Hgb 13.5 (13.5-17.5) g/dL Hct 40.0 L (41-53) % MCV 93.8 (80-100) fL MCH 31.7 (26-34) PG MCHC 33.8 (30-36) % RDW 13.7 (11.6-14.8) % Plt Count 264 (150-400) X10^3/uL Neut % (Auto) 56.1 (50-75) % Lymph % (Auto) 30.5 (25-40) % [place] % (Auto) 11.0 (3-14) % Eos % (Auto) 1.8 L (2-4) % Baso % (Auto) 0.6 (0-2) % Neut # (Auto) 3500 (2265-6621) /uL Lymph # (Auto) 1900 (2234-6148) /uL [place] # (Auto) 700 (0-900) /uL Eos # (Auto) 100 (0-450) /uL Baso # (Auto) 0 (0-100) /uL Sodium 137 (137-145) mmol/L Potassium 4.2 (3.4-5.1) mmol/L Chloride 106 (98-107) mmol/L Carbon Dioxide 21 L (22-32) mmol/L BUN 18 (9-20) mg/dL Creatinine 0.90 (0.66-1.25) mg/dL Estimated GFR > 60 (>60) mL/min BUN/Creatinine Ratio 20.0 (6-22) Glucose 114 H (80-110) mg/dL Calcium 8.8 (8.4-10.2) mg/dL Total Bilirubin 0.5 (0.2-1.3) mg/dL AST 25 (17-59) IU/L ALT 23 (<50) IU/L Alkaline Phosphatase 67 (38-126) U/L Total Creatine Kinase 167 (55-170) U/L Troponin I < 0.012 (0.01-0.034) ng/mL Total Protein 7.2 (6.3-8.2) g/dL Albumin 4.5 (3.5-5.0) g/dL Globulin 2.7 (1.7-4.1) g/dL Albumin/Globulin Ratio 1.7 (1.0-2.8) Lipase 17 L (23-300) U/L Imaging Data Chest x-ray: Radiologist's Impression: [address] [address] XRay Report Signed Patient: Victorino Mccullough MR#: [id number] : 1950 Acct:[id number] Age/Sex: 73 / M Date of Service: 03/20/24 Loc: ED Accession Number: [id number] Procedure: XR chest 2V Ordering Provider: Josse Roach PROCEDURE: XR CHEST 2V INDICATIONS: chest pain TECHNIQUE: 2 views of the chest were acquired. COMPARISON: None. FINDINGS: Surgical changes and devices: None. Lungs and pleura: Lungs are clear. No pleural effusions or pneumothorax. Mediastinum: Mediastinal contours are normal. Heart size is normal. Bones and chest wall: No suspicious bony abnormalities. Soft tissues appear unremarkable. IMPRESSION: No acute cardiopulmonary abnormality is seen. Dictated by: Rico Nam M.D. on 03/20/2024 at 16:09 Approved by: Rico Nam M.D. on 03/20/2024 at 16:09 ECG Data Attestation: I personally reviewed and interpreted this ECG as follows: Interpretation: Sinus bradycardia with ventricular rate of 57 beats per minute. CA interval 148 ms MDM Narrative Medical decision making narrative: 73-year-old male with right jaw pain. Patient and spouse, both in health care, were concerned that this could be cardiac related as the symptoms have been ongoing for the last 2 months. Patient has a follow up appointment with his dentist on Sunday, but want to make sure he was going to have a heart attack. Assessment was encouraging, chest x-ray and EKG were normal and labs are non concerning. Not sure if this is dental related or not, but confident this is not cardiac related. Discussed plan of care and return precautions with patient and spouse, verbalized understanding and was agreeable with course of action. <Josse Leal, DO - Last Filed: 03/20/24 17:23> Lab Data Labs: Lab Results 03/20/24 Range/Units 15:49 WBC 6.3 (4.5-11.0) X10^3/uL RBC 4.26 L (4.5-5.9) X10^6/uL Hgb 13.5 (13.5-17.5) g/dL Hct 40.0 L (41-53) % MCV 93.8 (80-100) fL MCH 31.7 (26-34) PG MCHC 33.8 (30-36) % RDW 13.7 (11.6-14.8) % Plt Count 264 (150-400) X10^3/uL Neut % (Auto) 56.1 (50-75) % Lymph % (Auto) 30.5 (25-40) % [place] % (Auto) 11.0 (3-14) % Eos % (Auto) 1.8 L (2-4) % Baso % (Auto) 0.6 (0-2) % Neut # (Auto) 3500 (0708-0636) /uL Lymph # (Auto) 1900 (0473-7047) /uL [place] # (Auto) 700 (0-900) /uL Eos # (Auto) 100 (0-450) /uL Baso # (Auto) 0 (0-100) /uL Sodium 137 (137-145) mmol/L Potassium 4.2 (3.4-5.1) mmol/L Chloride 106 (98-107) mmol/L Carbon Dioxide 21 L (22-32) mmol/L BUN 18 (9-20) mg/dL Creatinine 0.90 (0.66-1.25) mg/dL Estimated GFR > 60 (>60) mL/min BUN/Creatinine Ratio 20.0 (6-22) Glucose 114 H (80-110) mg/dL Calcium 8.8 (8.4-10.2) mg/dL Total Bilirubin 0.5 (0.2-1.3) mg/dL AST 25 (17-59) IU/L ALT 23 (<50) IU/L Alkaline Phosphatase 67 (38-126) U/L Total Creatine Kinase 167 (55-170) U/L Troponin I < 0.012 (0.01-0.034) ng/mL Total Protein 7.2 (6.3-8.2) g/dL Albumin 4.5 (3.5-5.0) g/dL Globulin 2.7 (1.7-4.1) g/dL Albumin/Globulin Ratio 1.7 (1.0-2.8) Lipase 17 L (23-300) U/L Discharge Plan Departure Patient Disposition: Home Clinical Impression: Toothache Instructions: DI for Dental Pain Activity Restrictions/Additional Instructions: *You have been diagnosed with dental pain. It was a pleasure seeing you again. Your chest x-ray and EKG were normal, your labs were not concerning, and therefore do not believe this is to be cardiac related. Please follow-up with your dentist as previously scheduled. For any worsening symptoms, please feel free to return to the emergency department. Otherwise, follow up with your family doctor as needed. *What to do: *Please continue to take your regular medications as directed. [ ] New medication prescriptions sent to your pharmacy: [ ] [ ] New medication written as a paper prescription [ x] No new medications given *Please follow up with your primary care provider in 2-3 days, call for an appointment. Let them know you were seen in the Emergency Department and that we ask that you be seen in follow up. We will electronically transmit a record of today's note if your PCP is in our system *If you do not have a primary care provider please contact the [facility] Resource line at [phone]. They will ask some questions about your medical history and help get you set up with a doctor in the community. ? Return to ER if you should have any new, worsening or concerning symptoms, such as worsening pain, severe headache, confusion, chest pain, difficulty breathing, fever greater than 101 F, shaking chills, persistent vomiting to the point that you cannot drink fluids, or other new or worsening symptoms. Prescriptions: No Action ASPIRIN (Aspirin EC) 81 mg PO QDAY Qty: 0 docusate sodium 100 MG capsule 200 mg PO QDAY Qty: 0 Glucose: Home Monitoring Kit QDAY Qty: 1 0RF (DME) Lancets 0 .Route .MEDSUPPLY Qty: 200 11RF Dose Instruction: As directed Rx Instructions: As directed (DME) blood-glucose meter [Blood Glucose Monitoring] Kit See Rx Instructions .ROUTE .MEDSUPPLY Qty: 1 0RF Rx Instructions: As directed for TID blood sugar testing. One Touch Verio Flex brand. (DME) Glucose: Test Strips 0 .Route .MEDSUPPLY Qty: 1 3RF Rx Instructions: As directed for TID blood sugar testing. One Touch Verio Flex monitor per Colin? (DME) lancets 0 .Route .MEDSUPPLY Qty: 100 6RF Rx Instructions: As directed for TID blood sugar testing. levothyroxine 50 mcg tablet 50 mcg PO DAILY Qty: 90 2RF metformin 1,000 mg tablet 1,000 mg PO BID Qty: 180 2RF atenolol 25 mg tablet 25 mg PO DAILY Qty: 90 2RF lisinopril 20 mg tablet 20 mg PO DAILY Qty: 90 2RF cholecalciferol (vitamin D3) 100 mcg (4,000 unit) Capsule 1,000 unit PO DAILY (DME) Resmed Airsense 10 CPAP Qty: 1 Dose Instruction: As directed Patient Comments: Pressure: 8-16 cmH2O DME: [facility] Rx Instructions: As directed Referrals: Rusty Balderrama MD [Primary Care Provider] - Stand Alone Forms: Patient Portal/API ED Sign-out <Josse Lanker, DO - Last Filed: 03/20/24 17:23> Cosign ED Attending Cosignature Attestation: Dr Leal Co-Sign Statement: I was available for consultation during this patient's emergency department visit. This chart is signed by myself for administrative purposes only. I did not have direct contact with this patient during this visit. They were seen independently by the APC.
--- NOTE | 2024-03-20 15:43 | DI.RAD.S_ITS ---
PROCEDURE: XR CHEST 2V INDICATIONS: chest pain TECHNIQUE: 2 views of the chest were acquired. COMPARISON: None. FINDINGS: Surgical changes and devices: None. Lungs and pleura: Lungs are clear. No pleural effusions or pneumothorax. Mediastinum: Mediastinal contours are normal. Heart size is normal. Bones and chest wall: No suspicious bony abnormalities. Soft tissues appear unremarkable. IMPRESSION: No acute cardiopulmonary abnormality is seen. Dictated by: Rico Nam M.D. on 03/20/2024 at 16:09 Approved by: Rico Nam M.D. on 03/20/2024 at 16:09
--- NOTE | 2024-03-20 15:55 | PC.NURSE ---
jaw/neck pain. states this has been going on for months. worse over the past couple days--worse over the last couple of days
[2024-03-20 15:56] LABS: Add Manual Diff / Slide Review NO; Basophils Absolute Auto 0 /uL (0-100); Basophils Percent Auto 0.6 % (0-2); Eosinophils Absolute Auto 100 /uL (0-450); Eosinophils Percent Auto 1.8 % (2-4); Hemoglobin 13.5 g/dL (13.5-17.5); Lymphocytes Absolute Auto 1900 /uL (1100-4500); Lymphocytes Percent Auto 30.5 % (25-40); Mean Corpuscular HGB Conc 33.8 % (30-36); Mean Corpuscular Hemoglobin 31.7 PG (26-34); Mean Corpuscular Volume 93.8 fL (80-100); Monocytes Absolute Auto 700 /uL (0-900); Neutrophils Absolute Auto 3500 /uL (1500-7000); Neutrophils Percent Auto 56.1 % (50-75); Platelet Count 264 X10^3/uL (150-400); Red Blood Cell Count 4.26 X10^6/uL (4.5-5.9); Red Cell Distribution Width 13.7 % (11.6-14.8); White Blood Cell Count 6.3 X10^3/uL (4.5-11.0)
--- NOTE | 2024-03-20 16:04 | EKG_ITS ---
[address] [address] Test Date: 2024-03-20 Pat Name: Victorino Mccullough Department: 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
[2024-03-20 16:17] LABS: Lipase 17 U/L (23-300)
[2024-03-20 16:19] LABS: Alanine Aminotransferase 23 IU/L (<50); Albumin 4.5 g/dL (3.5-5.0); Albumin Globulin Ratio 1.7 (1.0-2.8); Alkaline Phosphatase 67 U/L (38-126); Aspartate Aminotransferase 25 IU/L (17-59); Bilirubin Total 0.5 mg/dL (0.2-1.3); Blood Urea Nitrogen 18 mg/dL (9-20); Calcium 8.8 mg/dL (8.4-10.2); Carbon Dioxide 21 mmol/L (22-32); Chloride 106 mmol/L (98-107); Creatine Kinase 167 U/L (55-170); Estimated Glomerular Filt Rate > 60 mL/min (>60); Globulin 2.7 g/dL (1.7-4.1); Glucose 114 mg/dL (80-110); HEMOLYSIS < 15 (0-50); Potassium 4.2 mmol/L (3.4-5.1); Sodium 137 mmol/L (137-145); Total Protein 7.2 g/dL (6.3-8.2)
[2024-03-20 16:30] LABS: Troponin I < 0.012 ng/mL (0.01-0.034)
[2024-03-20 17:20] VITALS: BP 129/65; PULSE 60; RESP 16; TEMP 36.3; O2SAT 97
== END 2024-03-20 17:23 | disposition home or self-care (01) ==
PROVIDERS: Emergency Provider Registered Nurse; PCP Family Medicine
DX: K08.89 Other specified disorders of teeth and supporting structures (principal); R00.1 Bradycardia, unspecified; R07.9 Chest pain, unspecified
CPT/HCPCS: 36415; 71046; 80053; 82550; 83690; 84484; 85025; 93005; 99283; 99284

== ENCOUNTER → 2024-07-14 09:21 | Outpatient (CLI) | payer MEDICARE, SELFPAY ==
[2024-07-14 10:27] LABS: Add Manual Diff / Slide Review NO; Basophils Absolute Auto 0 /uL (0-100); Basophils Percent Auto 0.3 % (0-2); Eosinophils Absolute Auto 200 /uL (0-450); Eosinophils Percent Auto 2.5 % (2-4); Hematocrit 40.5 % (41-53); Hemoglobin 13.6 g/dL (13.5-17.5); Lymphocytes Absolute Auto 1800 /uL (1100-4500); Mean Corpuscular HGB Conc 33.7 % (30-36); Mean Corpuscular Hemoglobin 31.7 PG (26-34); Mean Corpuscular Volume 94.2 fL (80-100); Monocytes Absolute Auto 600 /uL (0-900); Monocytes Percent Auto 9.6 % (3-14); Neutrophils Absolute Auto 4100 /uL (1500-7000); Neutrophils Percent Auto 60.6 % (50-75); Platelet Count 270 X10^3/uL (150-400); Red Cell Distribution Width 13.6 % (11.6-14.8); White Blood Cell Count 6.7 X10^3/uL (4.5-11.0)
[2024-07-14 10:49] LABS: Alanine Aminotransferase 22 IU/L (<50); Albumin 4.4 g/dL (3.5-5.0); Albumin Globulin Ratio 1.7 (1.0-2.8); Alkaline Phosphatase 72 U/L (38-126); Aspartate Aminotransferase 24 IU/L (17-59); BUN Creatinine Ratio 15.7 (6-22); Bilirubin Total 0.6 mg/dL (0.2-1.3); Blood Urea Nitrogen 14 mg/dL (9-20); Calcium 9.5 mg/dL (8.4-10.2); Carbon Dioxide 28 mmol/L (22-32); Chloride 103 mmol/L (98-107); Cholesterol 256 mg/dL (140-199); Estimated Glomerular Filt Rate > 60 mL/min (>60); Globulin 2.6 g/dL (1.7-4.1); Glucose 96 mg/dL (80-110); HDL Cholesterol 40 mg/dL (40-60); HEMOLYSIS < 15 (0-50); LDL Cholesterol Calculated 178 mg/dL (<100); Sodium 137 mmol/L (137-145); Triglycerides 192 mg/dL (35-150)
[2024-07-14 11:20] LABS: Prostate Specific Antigen Scrn 2.05 ng/mL (0.1-4.0)
[2024-07-14 12:30] LABS: Creatinine Urine Random 174.49 mg/dL
[2024-07-14 12:36] LABS: Microalbumin Urine Random < 0.6 mg/dL (0-1.6)
== END ==
PROVIDERS: PCP Family Medicine; Referring Provider Family Medicine; Visit Provider Family Medicine
DX: D64.9 Anemia, unspecified (principal); E11.9 Type 2 diabetes mellitus without complications; Z12.5 Encounter for screening for malignant neoplasm of prostate; E78.5 Hyperlipidemia, unspecified; I10 Essential (primary) hypertension; E03.9 Hypothyroidism, unspecified; H25.9 Unspecified age-related cataract; K42.9 Umbilical hernia without obstruction or gangrene
CPT/HCPCS: 36415; 80053; 80061; 82043; 82570; 83036; 84443; 85025; G0103

== ENCOUNTER → 2025-07-06 10:12 | Outpatient (CLI) | payer OTHER, SELFPAY ==
[2025-07-06 11:03] LABS: Add Manual Diff / Slide Review NO; Hematocrit 43.4 % (41-53); Hemoglobin 14.5 g/dL (13.5-17.5); Lymphocytes Absolute Auto 2300 /uL (1100-4500); Mean Corpuscular HGB Conc 33.5 % (30-36); Mean Corpuscular Hemoglobin 31.3 PG (26-34); Mean Corpuscular Volume 93.3 fL (80-100); Platelet Count 320 X10^3/uL (150-400)
[2025-07-06 11:13] LABS: Hemoglobin A1C% w Est Avg Glu 5.8 % (4.0-6.0)
[2025-07-06 11:20] LABS: Alanine Aminotransferase 15 IU/L (<50); Albumin 4.7 g/dL (3.5-5.0); Albumin Globulin Ratio 1.7 (1.0-2.8); Alkaline Phosphatase 71 U/L (38-126); Blood Urea Nitrogen 16 mg/dL (9-20); Calcium 9.5 mg/dL (8.4-10.2); Carbon Dioxide 26 mmol/L (22-32); Chloride 101 mmol/L (98-107); Cholesterol 268 mg/dL (140-199); Estimated Glomerular Filt Rate > 60 mL/min (>60); Globulin 2.8 g/dL (1.7-4.1); Glucose 101 mg/dL (70-99); HDL Cholesterol 48 mg/dL (40-60); HEMOLYSIS < 15 (0-50); Potassium 5.3 mmol/L (3.4-5.1); Sodium 135 mmol/L (137-145); Total Protein 7.5 g/dL (6.3-8.2); Triglycerides 183 mg/dL (35-150)
[2025-07-06 11:51] LABS: TSH w/ Reflex to FT4 2.07 uIU/mL (0.47-4.68)
[2025-07-06 14:03] LABS: Microalbumi Creatinin Ratio Ur 5.0 ug/mg CR (<30)
== END ==
PROVIDERS: PCP Family Medicine; Referring Provider Family Medicine; Visit Provider Family Medicine
DX: D64.9 Anemia, unspecified (principal); E11.9 Type 2 diabetes mellitus without complications; Z12.5 Encounter for screening for malignant neoplasm of prostate; E03.9 Hypothyroidism, unspecified; I10 Essential (primary) hypertension; E78.2 Mixed hyperlipidemia
CPT/HCPCS: 36415; 80053; 80061; 82043; 82570; 83036; 84443; 85025; G0103